=== PATIENT | male | born 1980 | race Caucasian/White ===

== ENCOUNTER 2024-04-17 00:49 | Inpatient (IN) | payer BC, MEDICAID, OTHER ==
[~2024-04-17] VITALS: Ht 177.8 cm; Wt 84.0 kg
[2024-04-17 01:01] VITALS: O2SAT 98
[2024-04-17] MEDS: LORAZEPAM 2MG/ML INJ IM STA (01:26)
[2024-04-17] MEDS: DIPHENHYDRAMINE 50MG/ML VIAL IM STA (01:26)
[2024-04-17] MEDS: HALOPERIDOL LACTATE 5MG/ML VIAL IM STA (01:26)
[2024-04-17 02:30] LABS: BASOPHILS % 0.8 % (0.0-2.0); EOSINOPHILS % 0.6 % (0.0-5.0); HEMATOCRIT. 44.8 % (42.0-52.0); HEMOGLOBIN. 15.2 g/dL (14.0-18.0); LYMPHOCYTES % 14.3 % (20.0-50.0); MEAN CORPUSCULAR HEMOGLOBIN 30.4 pg (28.0-32.0); MEAN CORPUSCULAR VOLUME 89.3 fL (80.0-94.0); MEAN PLATELET VOLUME 8.9 fl (7.4-10.4); MONOCYTES % 9.5 % (2.0-8.0); NEUTROPHILS % 74.8 % (40.0-76.0); PLATELET 306 x1000/uL (130-400); RED BLOOD CELL COUNT 5.02 mill/uL (4.7-6.1); RED CELL DISTRIBUTION WIDTH 13.4 % (11.6-14.6); WHITE BLOOD COUNT 13.7 x1000/uL (4.5-11.0)
[2024-04-17 02:34] LABS: CLARITY URINE CLEAR (CLEAR); COLOR URINE YELLOW (YELLOW); GLUCOSE URINE NEGATIVE (NEGATIVE); KETONES URINE NEGATIVE (NEGATIVE); LEUKOCYTE ESTERASE URINE NEGATIVE (NEGATIVE); NITRITE URINE NEGATIVE (NEGATIVE); OCCULT BLOOD URINE 1+ (NEGATIVE); PH URINE 5.5 (4.5-8.0); PROTEIN URINE NEGATIVE (NEGATIVE); SPECIFIC GRAVITY URINE 1.024 (1.005-1.030)
[2024-04-17 02:35] LABS: CHLORIDE 110 mEq/L (98-107); POTASSIUM 3.7 mEq/L (3.5-5.1); SODIUM 143 mEq/L (136-145)
[2024-04-17 02:36] LABS: CALCIUM 9.1 mg/dL (8.7-10.4); CARBON DIOXIDE 22 mEq/L (21-32)
[2024-04-17 02:41] LABS: GLUCOSE 103 mg/dL (70-105); UREA NITROGEN BLOOD 13 mg/dL (9-23)
[2024-04-17 02:43] LABS: ACETAMINOPHEN < 2 ug/mL (10-30)
[2024-04-17 02:55] LABS: ETHANOL BLOOD < 10 mg/dL (<10)
[2024-04-17 03:03] LABS: *AMPHETAMINES SCREEN URINE PRESUMPTIVE POSITIVE (NEGATIVE); *BARBITURATES SCREEN URINE NEGATIVE (NEGATIVE); *BENZODIAZEPINES SCREEN URINE NEGATIVE (NEGATIVE); *COCAINE SCREEN URINE NEGATIVE (NEGATIVE)
[2024-04-17 03:04] LABS: CANNABINOID URINE SCREEN NEGATIVE (NEGATIVE); ECSTASY MDMA SCREEN URINE CONF.TEST INDICATED (NEGATIVE); METHADONE URINE SCREEN NEGATIVE (NEGATIVE); OPIATES URINE SCREEN NEGATIVE (NEGATIVE); PHENCYCLIDINE URINE SCREEN NEGATIVE (NEGATIVE)
[2024-04-17 03:32] LABS: SQUAMOUS EPITHELIAL CELL URINE NONE SEEN /lpf (RARE/1+)
[2024-04-17 03:33] LABS: WBC URINE 0-2 /hpf (0-2)
[2024-04-17 03:34] LABS: BACTERIA URINE TRACE; FINE GRANULAR CASTS URINE 0-5 /lpf
[2024-04-17] MEDS ORDERED: GUAIFENESIN 200MG/10ML SUGAR FREE UDC PO PRN (08:00)
[2024-04-17] MEDS ORDERED: ACETAMINOPHEN 325MG TABLET PO PRN ×2 (08:00)
[2024-04-17] MEDS ORDERED: CLONIDINE 0.1MG TABLET PO PRN (08:00)
[2024-04-17] MEDS ORDERED: MAGNESIUM/ALUMINUM HYDROXIDE/SIMETHICONE 30ML UDC PO PRN (08:00)
[2024-04-17] MEDS ORDERED: DOCUSATE SODIUM 100MG CAPSULE PO PRN (08:00)
[2024-04-17] MEDS ORDERED: LORAZEPAM 2MG/ML INJ IV PRN (08:00)
[2024-04-17] MEDS ORDERED: IPRATROPIUM/ALBUTEROL 0.5-3(2.5)MG/3ML NEB HHN PRN (08:00)
[2024-04-17] MEDS ORDERED: ONDANSETRON HCL 4MG/2ML INJ IV PRN (08:00)
[2024-04-17 10:00] VITALS: BP 129/82; PULSE 73; RESP 20; TEMP 36.3; TEMP 36.4; O2SAT 100
[2024-04-17] MEDS: MVI, ADULT NO.1 10 ML, FOLIC ACID 1 MG, THIAMINE HCL 100 MG in SODIUM CHLORIDE 0.9% 1,0... IV ONE (10:31)
[2024-04-17] MEDS: PANTOPRAZOLE SODIUM 40 MG/VIAL IV SCH (10:59)
[2024-04-17 12:08] VITALS: BP 147/78; PULSE 66; RESP 20; TEMP 36.4; O2SAT 100
[2024-04-17] MEDS ORDERED: BUPR-46 (13:36)
[2024-04-17] MEDS ORDERED: BUSP5TAB3 (13:36)
[2024-04-17] MEDS ORDERED: QUET100T34 (13:36)
[2024-04-17 16:57] VITALS: BP 138/95; PULSE 67; RESP 18; TEMP 36.5; O2SAT 100
[2024-04-17 18:59] LABS: CHLORIDE 110 mEq/L (98-107); POTASSIUM 3.7 mEq/L (3.5-5.1); SODIUM 142 mEq/L (136-145)
[2024-04-17 19:00] LABS: CALCIUM 8.6 mg/dL (8.7-10.4); CARBON DIOXIDE 25 mEq/L (21-32)
[2024-04-17 19:05] LABS: CREATININE 0.8 mg/dL (0.6-1.3); GLUCOSE 90 mg/dL (70-105); UREA NITROGEN BLOOD 9 mg/dL (9-23)
[2024-04-17 19:07] LABS: ALANINE AMINOTRANSFERASE 22 IU/L (10-49); ALBUMIN 3.5 g/dL (3.2-4.8); ASPARTATE AMINOTRANSFERASE 32 IU/L (<34); BILIRUBIN TOTAL 0.9 mg/dL (0.1-1.0); PHOSPHORUS 2.6 mg/dL (2.5-4.9); PROTEIN TOTAL 6.2 g/dL (6.0-8.3); TROPONIN I HIGH SENSITIVITY 29 ng/L (3.0-53)
[2024-04-17 19:09] LABS: CREATINE KINASE 395 IU/L (46-171)
[2024-04-17 19:22] LABS: HEPATITIS B SURFACE ANTIGEN NEGATIVE (Negative)
[2024-04-17 19:43] LABS: HEPATITIS C AB NON REACTIVE (Neg) (Negative)
[2024-04-17 20:00] VITALS: BP 141/86; PULSE 65; RESP 18; TEMP 36.8; O2SAT 97
[2024-04-17 22:00] VITALS: BP 147/92; PULSE 68; RESP 18; TEMP 36.2; O2SAT 97
[2024-04-18] VITALS: BP 141/84; PULSE 68; RESP 19; TEMP 36.1; O2SAT 100
[2024-04-18] MEDS ORDERED: THIAMINE HCL 100MG TABLET PO SCH (09:00)
[2024-04-18] MEDS ORDERED: FOLIC ACID 1MG TABLET PO SCH (09:00)
== END 2024-04-18 03:33 | disposition left against medical advice (07) | DRG 812 ==
LOC: ER 01:31 → 7WST 06:59 → EDBEDREQTM 07:02 → EDBEDREQ 07:02
PROVIDERS: ADMIT Internal Medicine; ATTEND Internal Medicine
DX: T43.651A Poisoning by methamphetamines accidental (unintentional), initial encounter (principal); G92.8 Other toxic encephalopathy; D72.829 Elevated white blood cell count, unspecified; F15.10 Other stimulant abuse, uncomplicated; Z53.21 Procedure and treatment not carried out due to patient leaving prior to being seen by health care provider; F91.9 Conduct disorder, unspecified; Z59.00 Homelessness unspecified; Y92.89 Other specified places as the place of occurrence of the external cause
CPT/HCPCS: 36415; 71045; 80048; 80053; 80305; 80307; 80320; 80329; 81003; 82550; 83735; 84100; 84484; 85025; 86705; 87340; 92610; 93970; 99285; J1200; J1630; J2060; J2470; J3411; J3490; J7030; G0480